=== PATIENT | female | born 1955 | race Caucasian/White ===

== ENCOUNTER 2021-09-11 15:18 | Outpatient (CLI) | payer MEDICARE | END 2021-09-11 15:19 | disposition home or self-care (01) | LOC: BICMAMMO 15:18 | PROVIDERS: ATTEND Family Medicine | DX: Z12.31 Encounter for screening mammogram for malignant neoplasm of breast (principal) | CPT/HCPCS: 77063; 77067 ==

== ENCOUNTER 2022-04-12 10:25 | Outpatient (CLI) | payer MEDICARE ==
[2022-04-12 11:53] LABS: #Basophils 0.1 10x3/uL (0.0-0.2); #Eosinphils 0.3 10x3/uL (0.0-0.5); #Monocytes 0.6 10x3/uL (0.0-1.1); #Neutrophils 3.6 10x3/uL (1.5-8.4); %Basophils 1.3 % (0.0-2.0); %Lymphocytes 27.5 % (18.0-47.0); %Monocytes 9.2 % (0.0-10.0); %Neutrophils 57.7 % (40.0-75.0); Hemoglobin 15.1 g/dL (12.0-15.5); Mean Corpuscular HGB CONC 35.4 g/dL (32.0-36.0); Mean Corpuscular Hemoglobin 31.8 pg (27.0-33.0); Mean Corpuscular Volume 89.7 fl (81.6-98.3); Mean Platelet Volume 9.6 fl (7.4-10.4); Platelet Count 270 10x3/uL (150-450); RBC Distribution Width 12.1 % (11.5-14.5); Red Blood Cell (RBC) Count 4.75 10x6/uL (3.90-5.03); White Blood Cell (WBC) Count 6.2 10x3/uL (3.5-10.5)
[2022-04-12 12:00] LABS: Prothrombin Time 10.6 sec (9.5-12.1)
[2022-04-12 12:03] LABS: Anion Gap 14 mmol/L (10-20); BUN (Urea Nitrogen) 18 mg/dL (9.8-20.1); Calc. Creatinine Clearance 0 mL/min (70-130); Calcium 10.2 mg/dL (7.8-10.44); Carbon Dioxide 28 mmol/L (23-31); Chloride 99 mmol/L (98-107); Estimated GFR 77; Glucose 146 mg/dL (80-115); Potassium 3.9 mmol/L (3.5-5.1); Sodium 137 mmol/L (136-145)
== END 2022-04-12 10:26 | disposition home or self-care (01) ==
LOC: LABBT 10:25
PROVIDERS: ATTEND Orthopaedic Surgery
DX: Z01.818 Encounter for other preprocedural examination (principal); M16.12 Unilateral primary osteoarthritis, left hip
CPT/HCPCS: 80048; 85025; 85610; 87081; 93005; 93010

== ENCOUNTER 2022-04-17 06:30 | Observation (INO) | payer MEDICARE ==
[2022-04-17] MEDS ORDERED: Vancomycin (BATCH) 1.5 GRAM/300 ML BAG ONE (07:02)
[2022-04-17] MEDS ORDERED: Tranexamic Acid 1,000 MG/10 ML VIAL ONE (07:02)
[2022-04-17] MEDS ORDERED: Sodium Chloride 0.9% 100 ML ONE ×2 (07:02→09:04)
[2022-04-17 07:32] LABS: SARS-CoV-2 NAA Rapid Test Not Detected (NotDetected)
[2022-04-17] MEDS ORDERED: Midazolam HCl 2 mg/2 ml Vial ONE ×2 (07:45→09:03)
[2022-04-17] MEDS ORDERED: Lidocaine 1% (PF) 30 ML VIAL ONE (07:45)
[2022-04-17] MEDS ORDERED: FENTANYL 50 MCG/ML 1 ML VIAL ONE ×3 (07:45→13:13)
[2022-04-17] MEDS ORDERED: Bupivacaine PF 0.5% 30 ML VIAL ONE ×2 (07:45→10:18)
[2022-04-17] MEDS ORDERED: fentaNYL PF 100 MCG/2 ML SYRINGE ONE (09:03)
[2022-04-17] MEDS ORDERED: CEFAZOLIN 2 GM VIAL ONE (09:04)
[2022-04-17] MEDS ORDERED: PROPOFOL 200 MG/20 ML VIAL ONE (09:19)
[2022-04-17] MEDS ORDERED: Ondansetron HCl/PF 4 MG/2 ML Vial IVP PRN (10:23)
[2022-04-17] MEDS ORDERED: Promethazine HCl 25 MG/ML VIAL IM PRN ×2 (10:23→10:58)
[2022-04-17] MEDS ORDERED: Promethazine HCl 25 MG/ML VIAL IVPB PRN (10:23)
[2022-04-17] MEDS ORDERED: Ketorolac Tromethamine 30 MG/ML VIAL IVP PRN (10:23)
[2022-04-17] MEDS ORDERED: HYDROmorphone 2 MG/ML VIAL SLOW IVP PRN (10:23)
[2022-04-17] MEDS ORDERED: Zolpidem Tartrate 5 MG TAB PO PRN (10:58)
[2022-04-17] MEDS ORDERED: Ondansetron PF 4 MG/2 ML Vial IVP PRN (10:58)
[2022-04-17] MEDS ORDERED: HYDROcodone/Acetaminophen 10/325 mg Tablet PO PRN (10:58)
[2022-04-17] MEDS ORDERED: Acetaminophen 325 MG TAB PO PRN (10:58)
[2022-04-17] MEDS ORDERED: Fentanyl 100 MCG/2 ML VIAL SLOW IVP PRN (10:58)
[2022-04-17] MEDS ORDERED: diphenhydrAMINE 25 MG CAP PO PRN (10:58)
[2022-04-17] MEDS: Sodium Chloride 0.9% 1,000 ML IV SCH ×2 (11:41→22:07)
[2022-04-17] MEDS ORDERED: Ketorolac Tromethamine 30 MG/ML VIAL ONE (12:32)
[2022-04-17] MEDS: Ketorolac Tromethamine 30 MG/ML VIAL IVP SCH ×2 (13:24→22:06)
[2022-04-17 14:28] VITALS: BMI 39.2
[2022-04-17] MEDS ORDERED: FLU VACC QS2022-23(65YR UP)/PF 240 MCG/0.7 ML SYRINGE IM ONE (15:00)
[2022-04-17] MEDS: HYDROcodone/Acetaminophen 10/325 mg Tablet PO PRN ×2 (15:24→22:05)
[2022-04-17] MEDS: Carvedilol 6.25 MG TAB PO SCH (17:09)
[2022-04-17] MEDS: Ferrous Gluconate 324 MG TAB PO SCH (17:09)
[2022-04-17] MEDS: CEFAZOLIN 2 GM in Sodium Chloride 0.9% 100 ML IVPB SCH (17:09)
[2022-04-17] MEDS: metFORMIN 500 MG TAB PO SCH (17:13)
[2022-04-17] MEDS ORDERED: Atorvastatin Calcium 20 MG TAB PO SCH (21:00)
[2022-04-17] MEDS: Senokot S 8.6-50 MG TAB PO SCH (22:07)
[2022-04-17] MEDS: Aspirin 81 mg Enteric Coated Tablet PO SCH (22:07)
[2022-04-18] MEDS: CEFAZOLIN 2 GM in Sodium Chloride 0.9% 100 ML IVPB SCH (02:05)
[2022-04-18] MEDS: HYDROcodone/Acetaminophen 10/325 mg Tablet PO PRN ×3 (02:05→10:49)
[2022-04-18] MEDS: Ketorolac Tromethamine 30 MG/ML VIAL IVP SCH (06:31)
[2022-04-18 06:49] LABS: Hemoglobin 12.2 g/dL (12.0-16.0); Mean Corpuscular HGB CONC 32.9 g/dL (32.0-36.0); Mean Corpuscular Hemoglobin 31.5 pg (27.0-31.0); Mean Corpuscular Volume 95.6 fl (78.0-98.0); Mean Platelet Volume 7.4 fL (7.4-10.4); Platelet Count 206 10x3/uL (130-400); RBC Distribution Width 11.6 % (11.5-14.5); Red Blood Cell (RBC) Count 3.88 mill/uL (4.20-5.40)
[2022-04-18] MEDS: Sodium Chloride 0.9% 1,000 ML IV SCH (07:00)
[2022-04-18 07:39] VITALS: TEMP 98.3
[2022-04-18] MEDS ORDERED: Multivitamin W/ Minerals 1 TAB PO SCH (09:00)
[2022-04-18] MEDS ORDERED: Lisinopril/Hydrochlorothiazide 20/25 mg Tablet PO SCH (09:00)
[2022-04-18] MEDS: Carvedilol 6.25 MG TAB PO SCH (09:21)
[2022-04-18] MEDS: Aspirin 81 mg Enteric Coated Tablet PO SCH (09:21)
[2022-04-18] MEDS: Ferrous Gluconate 324 MG TAB PO SCH (09:21)
[2022-04-18] MEDS: Senokot S 8.6-50 MG TAB PO SCH (09:22)
[2022-04-18] MEDS: metFORMIN 500 MG TAB PO SCH (09:22)
[2022-04-18 09:26] VITALS: BP 165/70
== END 2022-04-18 12:45 | disposition home or self-care (01) ==
LOC: SDC 06:30 → SURG B 14:05
PROVIDERS: ADMIT Orthopaedic Surgery; ATTEND Orthopaedic Surgery
PROC: 0SRB02A Replacement of Left Hip Joint with Metal on Polyethylene Synthetic Substitute, Uncemented, Open Approach (ICD-10-PCS; principal; 2022-04-17)
DX: M16.12 Unilateral primary osteoarthritis, left hip (principal); I10 Essential (primary) hypertension; E78.5 Hyperlipidemia, unspecified; E11.9 Type 2 diabetes mellitus without complications; Z66 Do not resuscitate; Z79.84 Long term (current) use of oral hypoglycemic drugs; Z79.899 Other long term (current) drug therapy; Z88.8 Allergy status to other drugs, medicaments and biological substances; Z20.822 Contact with and (suspected) exposure to COVID-19
CPT/HCPCS: 27130; 73502; 85027; 87070; 87075; 87205; 96365; 96375; 96376 ×2; 97110 ×2; 97116 ×2; 97530 ×2; 97535 ×2; C1776; G0378 ×2; J3010; J3370; U0002; 36415; J1885; J2001; J2250; J2704; J3490; S0020

== ENCOUNTER 2022-12-01 13:07 | Inpatient (IN) | payer OTHER, MEDICARE ==
[2022-12-01 14:24] LABS: #Eosinphils 0.2 thou/uL (0.0-0.7); #Monocytes 0.5 thou/uL (0.11-0.59); #Neutrophils 8.1 thou/uL (1.40-6.50); %Basophils 0.4 % (0.0-1.0); %Eosinophils 2.2 % (0.0-10.0); %Monocytes 5.5 % (0.0-10.0); %Neutrophils 83.6 % (42.0-75.0); Hemoglobin 14.7 g/dL (12.0-16.0); Mean Corpuscular HGB CONC 35.4 g/dL (32.0-36.0); Mean Corpuscular Hemoglobin 32.4 pg (27.0-31.0); Mean Corpuscular Volume 91.4 fl (78.0-98.0); Platelet Count 248 10x3/uL (130-400); RBC Distribution Width 12.5 % (11.5-14.5); Red Blood Cell (RBC) Count 4.54 mill/uL (4.20-5.40); White Blood Cell (WBC) Count 9.7 10x3/uL (4.8-10.8)
[2022-12-01 14:33] LABS: PTT 25.2 sec (22.9-36.1); Prothrombin Time 13.7 sec (12.0-14.7)
[2022-12-01] MEDS ORDERED: Morphine 2 MG/ML VIAL SLOW IVP PRN (14:33)
[2022-12-01] MEDS ORDERED: Dextrose 50% Abboject 50 ML SYRINGE SLOW IVP PRN (14:33)
[2022-12-01] MEDS ORDERED: Dextrose 5% in Water 1,000 ML IV PRN (14:33)
[2022-12-01] MEDS ORDERED: Morphine 4 MG/ML VIAL SLOW IVP PRN (14:33)
[2022-12-01] MEDS ORDERED: Ondansetron ODT 4 MG TAB PO PRN (14:33)
[2022-12-01] MEDS ORDERED: Ipratropium/Albuterol 3 ML NEB NEB PRN (14:33)
[2022-12-01] MEDS ORDERED: Glucagon 1 MG/ML KIT IM PRN (14:33)
[2022-12-01] MEDS ORDERED: hydrALAZINE 20 MG/ML VIAL SLOW IVP PRN (14:33)
[2022-12-01] MEDS ORDERED: Ondansetron PF 4 MG/2 ML Vial IVP PRN (14:33)
[2022-12-01] MEDS ORDERED: Insulin Regular 300 UNITS/3 ML VIAL SC PRN (14:33)
[2022-12-01] MEDS ORDERED: Cyclobenzaprine 10 MG TAB PO PRN (14:37)
[2022-12-01] MEDS ORDERED: traMADol HCl 50 MG TAB PO PRN (14:37)
[2022-12-01] MEDS ORDERED: Melatonin 3 MG TAB PO PRN (14:37)
[2022-12-01] MEDS ORDERED: Ondansetron PF 4 MG/2 ML Vial ONE (14:38)
[2022-12-01] MEDS ORDERED: Morphine 4 MG/ML VIAL ONE (14:38)
[2022-12-01 14:46] LABS: ALT (SGPT) 49 U/L (8-55); AST (SGOT) 25 U/L (5-34); Albumin 4.6 g/dL (3.4-4.8); Alkaline Phosphatase 67 U/L (40-110); Anion Gap 15 mmol/L (10-20); BUN (Urea Nitrogen) 13 mg/dL (9.8-20.1); Bilirubin, Total 0.7 mg/dL (0.2-1.2); Calc. Creatinine Clearance 0 mL/min (70-130); Calcium 10.5 mg/dL (7.8-10.44); Carbon Dioxide 27 mmol/L (23-31); Chloride 99 mmol/L (98-107); Estimated GFR 78; Glucose 217 mg/dL (80-115); Potassium 3.1 mmol/L (3.5-5.1); Protein, Total 7.6 g/dL (5.8-8.1); Sodium 138 mmol/L (136-145)
[2022-12-01 17:21] VITALS: BMI 39.6
[2022-12-01] MEDS: traMADol HCl 50 MG TAB PO SCH (17:47)
[2022-12-01] MEDS: Acetaminophen 500 MG TAB PO SCH ×2 (17:48→21:19)
[2022-12-01] MEDS: Insulin Regular 300 UNITS/3 ML VIAL SC PRN (17:49)
[2022-12-01] MEDS: Ketorolac Tromethamine 30 MG/ML VIAL IVP SCH (17:56)
[2022-12-01] MEDS: Potassium Chloride 20 MEQ in Premix Bag 1 BAG IVPB SCH ×2 (18:54→21:23)
[2022-12-01] MEDS ORDERED: Potassium Chloride 40 MEQ in Premix Bag 1 BAG IVPB SCH (21:00)
[2022-12-01] MEDS: Gabapentin 100 MG CAP PO SCH (21:22)
[2022-12-01] MEDS ORDERED: Ondansetron ODT 4 MG TAB SL PRN (22:25)
[2022-12-01] MEDS ORDERED: HYDROcodone/Acetaminophen 5/325 mg Tablet PO PRN (22:25)
[2022-12-01] MEDS ORDERED: Sodium Chloride 0.9% 1,000 ML IV SCH (23:55)
[2022-12-02] MEDS ORDERED: Atorvastatin Calcium 20 MG TAB PO SCH ×2 (00:15→21:00)
[2022-12-02] MEDS ORDERED: Carvedilol 6.25 MG TAB PO SCH (00:15)
[2022-12-02] MEDS: traMADol HCl 50 MG TAB PO SCH ×4 (00:25→16:20)
[2022-12-02] MEDS: Ketorolac Tromethamine 30 MG/ML VIAL IVP SCH ×4 (00:32→15:10)
[2022-12-02] MEDS: Acetaminophen 500 MG TAB PO SCH ×4 (05:13→22:08)
[2022-12-02 06:05] LABS: Anion Gap 11 mmol/L (10-20); BUN (Urea Nitrogen) 15 mg/dL (9.8-20.1); Calc. Creatinine Clearance 82 mL/min (70-130); Calcium 9.2 mg/dL (7.8-10.44); Carbon Dioxide 26 mmol/L (23-31); Chloride 103 mmol/L (98-107); Estimated GFR 61; Glucose 149 mg/dL (80-115); Potassium 3.6 mmol/L (3.5-5.1); Sodium 136 mmol/L (136-145)
[2022-12-02] MEDS ORDERED: CEFAZOLIN 2 GM in Sodium Chloride 0.9% 100 ML IVPB SCH (08:00)
[2022-12-02] MEDS ORDERED: CEFAZOLIN 2 GM VIAL ONE (09:26)
[2022-12-02] MEDS ORDERED: Sodium Chloride 0.9% 100 ML ONE (09:26)
[2022-12-02] MEDS: Gabapentin 100 MG CAP PO SCH ×2 (09:57→16:20)
[2022-12-02] MEDS ORDERED: fentaNYL 50 mcg/mL 1 mL Vial ONE (11:18)
[2022-12-02] MEDS ORDERED: Ketorolac Tromethamine 30 MG/ML VIAL ONE (11:19)
[2022-12-02] MEDS ORDERED: Ondansetron PF 4 MG/2 ML Vial ONE (11:19)
[2022-12-02] MEDS ORDERED: Lidocaine 1% PF 5 ML VIAL ONE (11:19)
[2022-12-02] MEDS ORDERED: Rocuronium Bromide 10 MG/ML (10ML VIAL) ONE (11:19)
[2022-12-02] MEDS ORDERED: PROPOFOL 200 MG/20 ML VIAL ONE (11:19)
[2022-12-02] MEDS ORDERED: diphenhydrAMINE 50 MG/ML VIAL ONE (11:19)
[2022-12-02] MEDS ORDERED: HYDROmorphone 2 MG/ML VIAL ONE (12:08)
[2022-12-02] MEDS ORDERED: SUGAMMADEX SODIUM 200 MG/2 ML VIAL ONE (12:49)
[2022-12-02] MEDS ORDERED: Ondansetron HCl/PF 4 MG/2 ML Vial IVP PRN (13:35)
[2022-12-02] MEDS ORDERED: hydrALAZINE 20 MG/ML VIAL ONE (14:09)
[2022-12-02] MEDS: Carvedilol 6.25 MG TAB PO SCH ×2 (14:50→22:07)
[2022-12-02] MEDS: Lisinopril/Hydrochlorothiazide 20/25 mg Tablet PO SCH (14:50)
[2022-12-02] MEDS: CEFAZOLIN 2 GM in Sodium Chloride 0.9% 100 ML IVPB SCH (16:22)
[2022-12-02] MEDS: Insulin Regular 300 UNITS/3 ML VIAL SC PRN (16:24)
[2022-12-02] MEDS ORDERED: Simvastatin 20 MG TAB PO SCH (21:00)
[2022-12-02] MEDS: Gabapentin 300 MG CAP PO SCH (22:07)
[2022-12-02] MEDS: Atorvastatin Calcium 20 MG TAB PO SCH (22:07)
[2022-12-03] MEDS: Ketorolac Tromethamine 30 MG/ML VIAL IVP SCH ×4 (00:21→19:09)
[2022-12-03] MEDS: CEFAZOLIN 2 GM in Sodium Chloride 0.9% 100 ML IVPB SCH (00:21)
[2022-12-03] MEDS: traMADol HCl 50 MG TAB PO SCH ×4 (00:23→19:09)
[2022-12-03] MEDS: Acetaminophen 500 MG TAB PO SCH ×4 (05:05→21:05)
[2022-12-03 09:01] LABS: #Basophils 0.1 thou/uL (0.0-0.2); #Eosinphils 0.8 thou/uL (0.0-0.7); #Monocytes 0.9 thou/uL (0.11-0.59); #Neutrophils 6.3 thou/uL (1.40-6.50); %Basophils 0.7 % (0.0-1.0); %Eosinophils 7.9 % (0.0-10.0); %Lymphocytes 21.3 % (21.0-51.0); %Monocytes 8.9 % (0.0-10.0); %Neutrophils 60.9 % (42.0-75.0); Hemoglobin 11.7 g/dL (12.0-16.0); Mean Corpuscular HGB CONC 32.6 g/dL (32.0-36.0); Mean Corpuscular Hemoglobin 32.1 pg (27.0-31.0); Mean Corpuscular Volume 98.6 fl (78.0-98.0); Mean Platelet Volume 10.1 fL (7.4-10.4); Platelet Count 229 10x3/uL (130-400); RBC Distribution Width 12.8 % (11.5-14.5); Red Blood Cell (RBC) Count 3.64 mill/uL (4.20-5.40); White Blood Cell (WBC) Count 10.3 10x3/uL (4.8-10.8)
[2022-12-03 09:20] LABS: Anion Gap 13 mmol/L (10-20); BUN (Urea Nitrogen) 19 mg/dL (9.8-20.1); Calc. Creatinine Clearance 97 mL/min (70-130); Carbon Dioxide 26 mmol/L (23-31); Chloride 103 mmol/L (98-107); Estimated GFR 74; Glucose 134 mg/dL (80-115); Potassium 3.9 mmol/L (3.5-5.1); Sodium 138 mmol/L (136-145)
[2022-12-03] MEDS: Lisinopril/Hydrochlorothiazide 20/25 mg Tablet PO SCH (09:23)
[2022-12-03] MEDS: Gabapentin 300 MG CAP PO SCH ×3 (09:23→21:06)
[2022-12-03] MEDS: Carvedilol 6.25 MG TAB PO SCH ×2 (09:24→21:04)
[2022-12-03] MEDS: Atorvastatin Calcium 20 MG TAB PO SCH (21:04)
[2022-12-04] MEDS: Ketorolac Tromethamine 30 MG/ML VIAL IVP SCH ×2 (00:28→05:09)
[2022-12-04] MEDS: traMADol HCl 50 MG TAB PO SCH ×4 (00:29→18:31)
[2022-12-04] MEDS: Acetaminophen 500 MG TAB PO SCH ×3 (05:08→15:28)
[2022-12-04 07:19] LABS: #Basophils 0.1 thou/uL (0.0-0.2); #Eosinphils 0.5 thou/uL (0.0-0.7); #Monocytes 0.7 thou/uL (0.11-0.59); #Neutrophils 6.1 thou/uL (1.40-6.50); %Basophils 0.5 % (0.0-1.0); %Eosinophils 5.7 % (0.0-10.0); %Lymphocytes 18.9 % (21.0-51.0); %Monocytes 8.1 % (0.0-10.0); %Neutrophils 66.6 % (42.0-75.0); Hemoglobin 10.9 g/dL (12.0-16.0); Mean Corpuscular HGB CONC 33.3 g/dL (32.0-36.0); Mean Corpuscular Hemoglobin 32.5 pg (27.0-31.0); Mean Corpuscular Volume 97.6 fl (78.0-98.0); Mean Platelet Volume 9.6 fL (7.4-10.4); Platelet Count 203 10x3/uL (130-400); RBC Distribution Width 12.7 % (11.5-14.5); Red Blood Cell (RBC) Count 3.35 mill/uL (4.20-5.40); White Blood Cell (WBC) Count 9.2 10x3/uL (4.8-10.8)
[2022-12-04] MEDS: Gabapentin 300 MG CAP PO SCH ×2 (10:41→15:27)
[2022-12-04] MEDS: Carvedilol 6.25 MG TAB PO SCH (10:42)
[2022-12-04] MEDS: Lisinopril/Hydrochlorothiazide 20/25 mg Tablet PO SCH (10:42)
[2022-12-04 18:13] VITALS: BP 163/86; TEMP 98.3
[2022-12-04] MEDS ORDERED: Senokot S 8.6-50 MG TAB PO SCH (21:00)
[2022-12-05] MEDS ORDERED: Polyethylene Glycol 3350 17 GM Packet PO SCH (09:00)
== END 2022-12-04 19:28 | DRG 494 ==
LOC: ERS 13:07 → INTOOBSV 14:29 → SJJU 14:29 → OBSVTOIN 12-02 11:52
PROVIDERS: ADMIT Surgery; ATTEND Surgery
PROC: 0QSK06Z Reposition Left Fibula with Intramedullary Internal Fixation Device, Open Approach (ICD-10-PCS; principal; 2022-12-02)
PROC: 0QSH06Z Reposition Left Tibia with Intramedullary Internal Fixation Device, Open Approach (ICD-10-PCS; 2022-12-02)
DX: S82.202A Unspecified fracture of shaft of left tibia, initial encounter for closed fracture (principal); S82.402A Unspecified fracture of shaft of left fibula, initial encounter for closed fracture; E11.9 Type 2 diabetes mellitus without complications; I10 Essential (primary) hypertension; Z96.642 Presence of left artificial hip joint; E78.00 Pure hypercholesterolemia, unspecified; Y92.89 Other specified places as the place of occurrence of the external cause; Z79.84 Long term (current) use of oral hypoglycemic drugs; Z79.82 Long term (current) use of aspirin; Z79.899 Other long term (current) drug therapy; Z90.89 Acquired absence of other organs; Z91.09 Other allergy status, other than to drugs and biological substances; W13.4XXA Fall from, out of or through window, initial encounter
CPT/HCPCS: 36415; 36416; 71045; 80048; 80053; 85025; 85610; 85730; 93005; 96374; 96375; C1713; J0360; J1170; J1200; J1815; J1885; J2270; J2405; J2704; J3010; J3480; J3490; J7050

== ENCOUNTER 2024-03-18 08:52 | Outpatient (CLI) | payer MEDICARE | END 2024-03-18 08:53 | disposition home or self-care (01) | LOC: BICMAMMO 08:52 | PROVIDERS: ATTEND Family Medicine | DX: Z12.31 Encounter for screening mammogram for malignant neoplasm of breast (principal); Z78.0 Asymptomatic menopausal state; E28.39 Other primary ovarian failure | CPT/HCPCS: 77063; 77067; 77080 ==